=== PATIENT | male | born 1975 | race Asian ===

== ENCOUNTER 2018-07-06 13:49 | Outpatient (CLI) | payer OTHER ==
--- NOTE | 2018-07-06 15:33 | RAD ---
LUMBAR SPINE 2 VIEWS: HISTORY: Low back pain. FINDINGS: Lumbar vertebrae maintain height and alignment on the lateral view. Five lumbar-type vertebrae. Los s of disk space at L5-S1. Mild degenerative spurring from the lumbar vertebrae. Mild facet hypertro phy. No evidence of spondylolisthesis. IMPRESSION: There are mild degenerative changes present and mild loss of disk space at L5-S1. POS: ÁNGELA
== END 2018-07-06 13:50 | disposition home or self-care (01) ==
LOC: SCSRAD 13:49
PROVIDERS: ATTEND Family Medicine
DX: M54.5 Low back pain (principal); M47.817 Spondylosis without myelopathy or radiculopathy, lumbosacral region
CPT/HCPCS: 72100

== ENCOUNTER 2020-12-08 16:19 | Outpatient (CLI) | payer BC | END 2020-12-08 16:20 | disposition home or self-care (01) | LOC: BICRAD 16:19 | PROVIDERS: ATTEND Family Medicine | DX: S91.331A Puncture wound without foreign body, right foot, initial encounter (principal) ==

== ENCOUNTER 2022-06-15 15:37 | Outpatient (CLI) | payer BC | END 2022-06-15 15:38 | disposition home or self-care (01) | LOC: SCSRAD 15:37 | PROVIDERS: ATTEND Family Medicine | DX: M54.42 Lumbago with sciatica, left side (principal) | CPT/HCPCS: 72100 ==